=== PATIENT | female | born 1935 | race Caucasian/White ===

== ENCOUNTER → 2024-01-27 | Outpatient (CLI) | payer MEDICARE, SELFPAY ==
--- NOTE | 2024-01-27 12:30 | MRI_ITS ---
STUDY: MRI LUMBAR SPINE WITHOUT CONTRAST REASON FOR EXAM: Female, 88 years old. L sciatica TECHNIQUE: Standardized fat and water weighted pulse sequences were obtained in the sagittal and axial planes. COMPARISON: None FINDINGS: Normal lumbar lordosis. Moderate levoscoliosis is present. Normal conus medullaris that terminates at the L1 level. No marrow edema or fracture or compression deformity is present. 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 Moderate rectosigmoid diverticulosis is present. T12-L1: Moderate disc space narrowing with diffuse disc desiccation and diffuse disc spur complex. Slight retrolisthesis of 2 to 3 mm. Mild Modic endplate degenerative signal left lateral recess stenosis with nerve root compression. Moderate left foraminal stenosis with nerve root compression. Moderate facet joint hypertrophy. Mild right foraminal stenosis. Normal central canal and bilateral lateral recesses. L1-2: Diffuse disc desiccation with moderate disc space narrowing and diffuse disc desiccation and diffuse disc bulging/spur complex. Mild facet joint hypertrophy. Normal central canal and bilateral lateral recesses. Normal bilateral intervertebral neural foramina. L2-3: Diffuse disc desiccation with mild to moderate asymmetric disc space narrowing and slight posterior annular bulging. Mild endplate degenerative changes. Mild to moderate facet joint and ligament of flavum hypertrophy. Moderate right foraminal stenosis with nerve root compression. Normal central canal and bilateral lateral recesses. Normal left neural foramen. L3-4: Severe disc space narrowing with a diffuse disc osteophyte complex. Mild to moderate facet joint hypertrophy. Normal central canal and bilateral lateral recesses. Normal bilateral intervertebral neural foramina. L4-5: Severe disc space narrowing. Moderate Modic endplate degenerative signal. Diffuse disc spur complex. Severe asymmetric hypertrophy and degeneration of the facet joints, right greater than left contributing to severe central canal stenosis with flattening of the thecal sac and displacement of the thecal sac into the left paracentral region. Severe bilateral foraminal stenosis with nerve root compression. L5-S1: Severe disc space narrowing. Anterior broad-based disc herniation. Mild to moderate facet joint hypertrophy. Mild to moderate Modic endplate degenerative signal is present. Mild to moderate central canal stenosis and bilateral lateral recess stenosis. Moderate facet joint hypertrophy. Mild bilateral foraminal stenosis. Normal visualized sacral ala. There is moderate paraspinal muscular atrophy. MRI/Spine Lumbar (Routine) IMPRESSION: 1. Multilevel degenerative changes, as described above. 2. 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 Electronically Signed: Mykel Dougherty MD at 12:27 EDT ,
== END | disposition home or self-care (01) ==
PROVIDERS: PCP Family Medicine; Referring Provider Anesthesiology; Visit Provider Anesthesiology
DX: M47.816 Spondylosis without myelopathy or radiculopathy, lumbar region (principal); M46.1 Sacroiliitis, not elsewhere classified
CPT/HCPCS: 72148